=== PATIENT | female | born 1970 | race Asian ===

== ENCOUNTER 2019-02-27 11:33 | Emergency (ER) | payer SELFPAY ==
[~2019-02-27] VITALS: Ht 149.9 cm; Wt 60.0 kg
[2019-02-27 11:45] VITALS: BP 147/79
[2019-02-27] MEDS ORDERED: AMLO10TA7 PO (11:53)
[2019-02-27] MEDS ORDERED: ATOR20TA86 PO (11:53)
[2019-02-27] MEDS ORDERED: INSREG SQ (11:53)
[2019-02-27] MEDS ORDERED: CLOP75TA3 PO (11:53)
[2019-02-27 12:00] LABS: GLUCOSE,POINT OF CARE 370 MG/DL (70-110)
== END 2019-02-27 12:40 | disposition left against medical advice (07) ==
LOC: EMS 11:34
DX: R51 Headache (principal); Z53.21 Procedure and treatment not carried out due to patient leaving prior to being seen by health care provider